=== PATIENT | male | born 1945 | race African-American/Black ===

== ENCOUNTER 2017-05-08 14:35 | Inpatient (IN) | payer MEDICARE, OTHER ==
[2017-05-08] MEDS ORDERED: IPRATROPIUM/ALBUTEROL 0.5-2.5 MG/3 ML AMPUL NEB ONE ×2 (16:17→20:30)
--- NOTE | 2017-05-08 16:19 | ER Document Report ---
ED Medical Screen (RME) - General Chief Complaint: Fever Stated Complaint: FEVER Time Seen by Provider: 05/08/17 16:10 Mode of Arrival: Ambulatory Information source: Patient Notes: 71-year-old male history of kidney transplant heart transplant presents with complaints of fever cough productive yellow since yesterday I have greeted and performed a rapid initial assessment of this patient. A comprehensive ED assessment and evaluation of the patient, analysis of test results and completion of the medical decision making process will be conducted by additional ED providers. PHYSICAL EXAMINATION: GENERAL: Well-appearing, well-nourished and in no acute distress. HEAD: Atraumatic, normocephalic. EYES: Pupils equal round extraocular movements intact, conjunctiva are normal. ENT: Nares patent NECK: Normal range of motion LUNGS: Inspiratory expiratory wheezing all throughout Musculoskeletal: Normal range of motion NEUROLOGICAL: Normal speech, normal gait. PSYCH: Normal mood, normal affect. SKIN: Dialysis access left upper extremity TRAVEL OUTSIDE OF THE [place] IN LAST 30 DAYS: No - Related Data Allergies/Adverse Reactions: No Known Allergies Allergy (Verified 05/08/17 14:37) Past Medical History - Social History Frequency of alcohol use: None Drug Abuse: None - Past Medical History Cardiac Medical History: Reports: Hx Hypertension Denies: Hx Coronary Artery Disease, Hx Heart Attack Pulmonary Medical History: Denies: Hx Asthma, Hx Bronchitis, Hx COPD, Hx Pneumonia Neurological Medical History: Denies: Hx Cerebrovascular Accident, Hx Seizures Renal/ Medical History: Denies: Hx Peritoneal Dialysis Musculoskeltal Medical History: Reports Hx Arthritis - Immunizations Hx Diphtheria, Pertussis, Tetanus Vaccination: Yes Physical Exam - Vital signs Vitals: Temp Pulse Resp BP Pulse Ox 99.9 F 64 16 169/43 H 97 05/08/17 15:01 05/08/17 15:01 05/08/17 15:01 05/08/17 15:01 05/08/17 15:01 Course - Vital Signs Vital signs: Temp Pulse Resp BP Pulse Ox 99.9 F 64 16 169/43 H 97 05/08/17 15:01 05/08/17 15:01 05/08/17 15:01 05/08/17 15:01 05/08/17 15:01
--- NOTE | 2017-05-08 16:44 | RADIOLOGY REPORT (SQ) ---
EXAM DESCRIPTION: CHEST PA/LAT COMPLETED DATE/TIME: 05/08/2017 4:30 pm REASON FOR STUDY: fever COMPARISON: None. EXAM PARAMETERS: NUMBER OF VIEWS: two views TECHNIQUE: Digital Frontal and Lateral radiographic views of the chest acquired. RADIATION DOSE: NA LIMITATIONS: none FINDINGS: LUNGS AND PLEURA: No opacities, masses or pneumothorax. No pleural effusion. MEDIASTINUM AND HILAR STRUCTURES: No masses or contour abnormalities. HEART AND VASCULAR STRUCTURES: Cardiac silhouette remains enlarged and is unchanged in configuration. BONES: No acute findings. HARDWARE: Patient is status post median sternotomy OTHER: No other significant finding. IMPRESSION: No significant interval changes compared to the previous study. Cardiomegaly. No acute changes. Other findings as noted above TECHNICAL DOCUMENTATION: JOB ID: [id number] [employer]- All Rights Reserved
[2017-05-08 17:49] LABS: ABSOLUTE EOSINOPHILS # (AUTO) 0.1 10^3/uL (0.0-0.6); ABSOLUTE LYMPHOCYTES (AUTO) 0.7 10^3/uL (0.5-4.7); ABSOLUTE NEUT (AUTO) 4.6 10^3/uL (1.7-8.2); BASOPHILS % (AUTO) 0.4 % (0-2); HEMATOCRIT 36.3 % (37.9-51.0); HEMOGLOBIN 11.9 g/dL (13.5-17.0); LYMPHOCYTES % (AUTO) 10.2 % (13-45); MEAN CORPUSCULAR HEMOGLOBIN 27.4 pg (27.0-33.4); MEAN CORPUSCULAR HGB CONC 32.8 g/dL (32.0-36.0); MEAN CORPUSCULAR VOLUME 83 fl (80-97); MONOCYTES % (AUTO) 15.4 % (3-13); PLATELET COUNT 187 10^3/uL (150-450); RED BLOOD COUNT 4.35 10^6/uL (4.35-5.55); TOTAL CELLS COUNTED % (AUTO) 100 %; WHITE BLOOD COUNT 6.4 10^3/uL (4.0-10.5)
[2017-05-08 17:55] LABS: APPEARANCE,URINE CLEAR; BILIRUBIN,URINE NEGATIVE (NEGATIVE); COLOR,URINE YELLOW; GLUCOSE, URINE NEGATIVE (NEGATIVE); KETONES,URINE NEGATIVE (NEGATIVE); LEUKOCYTE ESTERASE,URINE NEGATIVE (NEGATIVE); NITRITE,URINE NEGATIVE (NEGATIVE); PROTEIN,URINE NEGATIVE (NEGATIVE); URINE SPECIFIC GRAVITY 1.008; UROBILINOGEN,URINE NEGATIVE mg/dL (<2.0)
[2017-05-08 17:56] LABS: INTERNATIONAL RATION (INR) 1.01
[2017-05-08 18:26] LABS: VENOUS BLOOD BASE EXCESS 1.6 mmol/L; VENOUS BLOOD HCO3 25.7 mmol/L (20-32); VENOUS BLOOD PCO2 39.1 mmHg (35-63); VENOUS BLOOD PH 7.44 (7.30-7.42)
[2017-05-08 18:37] LABS: ALANINE AMINOTRANSFERASE 24 U/L (21-72); ALBUMIN 4.2 g/dL (3.5-5.0); ALKALINE PHOSPHATASE 91 U/L (38-126); ANION GAP 11 (5-19); ASPARTATE AMINO TRANSFERASE 22 U/L (17-59); BILIRUBIN,DIRECT 0.7 mg/dL (0.0-0.4); BILIRUBIN,TOTAL 0.9 mg/dL (0.2-1.3); BLOOD UREA NITROGEN 32 mg/dL (7-20); CALCIUM 10.1 mg/dL (8.4-10.2); CARBON DIOXIDE 28 mmol/L (22-30); CHLORIDE 101 mmol/L (98-107); GLUCOSE 134 mg/dL (75-110); POTASSIUM 4.3 mmol/L (3.6-5.0); SODIUM 140.2 mmol/L (137-145); TOTAL PROTEIN 7.2 g/dL (6.3-8.2)
[2017-05-08] MEDS ORDERED: CEFEPIME 2 GM/D5W RTU 2 GM/50 ML RTUPB IV ONE (20:13)
--- NOTE | 2017-05-08 20:50 | ER Document Report ---
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 He notes that he is also had an associated cough. Patient states otherwise at this time he feels well. He notes that his fever resolved spontaneously but he continues to feel generally unwell and have a dry, nonproductive cough. Nothing has been noted to worsen his symptoms. No known sick contacts. He denies recent history of similar symptoms. He has not seen his general doctor regarding today's concerns. He has received his flu vaccination this year. He denies any vomiting, diarrhea, headache, neck pain or altered mental status. No abdominal pain. TRAVEL OUTSIDE OF THE [place] IN LAST 30 DAYS: No - Related Data Allergies/Adverse Reactions: No Known Allergies Allergy (Verified 05/08/17 14:37) Past Medical History - General Information source: Patient - Social History Smoking Status: Never Smoker Frequency of alcohol use: None Drug Abuse: None Lives with: Spouse/Significant other Family History: Reviewed & Not Pertinent Patient has suicidal ideation: No Patient has homicidal ideation: No - Past Medical History Cardiac Medical History: Reports: Hx Hypertension Denies: Hx Coronary Artery Disease, Hx Heart Attack Pulmonary Medical History: Denies: Hx Asthma, Hx Bronchitis, Hx COPD, Hx Pneumonia Neurological Medical History: Denies: Hx Cerebrovascular Accident, Hx Seizures Renal/ Medical History: Denies: Hx Peritoneal Dialysis Musculoskeltal Medical History: Reports Hx Arthritis - Immunizations Hx Diphtheria, Pertussis, Tetanus Vaccination: Yes Hx Pneumococcal Vaccination: 12/29/14 Review of Systems - Review of Systems Notes: Constitutional: Positive for fever. HENT: Negative for sore throat. Eyes: Negative for visual changes. Cardiovascular: Negative for chest pain. Respiratory: Positive for cough Gastrointestinal: Negative for abdominal pain, vomiting or diarrhea. Genitourinary: Negative for dysuria. Musculoskeletal: Negative for back pain. Skin: Negative for rash. Neurological: Negative for headaches, weakness or numbness. 10 point ROS negative except as marked above and in HPI. Physical Exam - Vital signs Vitals: Temp Pulse Resp BP Pulse Ox 99.9 F 64 16 169/43 H 97 05/08/17 15:01 05/08/17 15:01 05/08/17 15:01 05/08/17 15:01 05/08/17 15:01 Interpretation: Hypertensive Notes: PHYSICAL EXAMINATION: GENERAL: Well-appearing, well-nourished and in no acute distress. HEAD: Atraumatic, normocephalic. EYES: Pupils equal round and reactive to light, extraocular movements intact, sclera anicteric, conjunctiva are normal. ENT: nares patent, oropharynx clear without exudates. Moist mucous membranes. NECK: Normal range of motion, supple without lymphadenopathy LUNGS: Breath sounds clear to auscultation bilaterally and equal. No wheezes rales or rhonchi. HEART: Regular rate and rhythm without murmurs ABDOMEN: Soft, nontender, normoactive bowel sounds. No guarding, no rebound. No masses appreciated. EXTREMITIES: Normal range of motion, no pitting or edema. No cyanosis. NEUROLOGICAL: No focal neurological deficits. Moves all extremities spontaneously and on command. PSYCH: Normal mood, normal affect. SKIN: Warm, Dry, normal turgor, no rashes or lesions noted. Course - Re-evaluation Re-evalutation: 05/08/17 20:48 Patient presents with a fever to 101.6F with an associated cough but denies any additional symptoms. He is otherwise very well in appearance, in no acute distress, but is unfortunately immune suppressed due to a both heart and kidney transplant. Clinical history and exam is not consistent with an acute bacterial meningitis, encephalitis, pneumonia, there is no evidence of a cellulitis on examination. Patient likewise denies any urinary symptoms. Chest x-ray is clear without any evidence of an acute pneumonia. Urinalysis without any evidence of a pyelonephritis. Patient does not have any focal abdominal tenderness to suggest an acute biliary pathology, acute appendicitis, acute mesenteric ischemia, bowel obstruction, bowel, or any other life- threatening acute intra-abdominal pathology as the etiology of the fever and additional symptoms today. Labs are otherwise unremarkable. Given his immune suppression and my inability to test for influenza will contact [facility] to discuss with his records management coordinator. 05/08/17 21:34 I discussed this case with the transplant fellow on-call Dr. Alfredo Ho who has recommended hospitalization on IV antibiotics and monitoring the patient to ensure that he does not have any decompensation. I have discussed this with the hospitalist who is accepted the patient for admission. - Vital Signs Vital signs: Temp Pulse Resp BP Pulse Ox 98.6 F 80 18 175/54 H 100 05/08/17 20:32 05/08/17 20:32 05/09/17 01:06 05/09/17 02:01 05/09/17 02:01 - Laboratory Result Diagrams: 05/08/17 17:15 05/08/17 17:10 Laboratory results interpreted by me: 05/08/17 05/08/17 05/08/17 17:10 17:15 17:15 Hgb 11.9 L Hct 36.3 L RDW 17.0 H Lymphocytes % 10.2 L Monocytes % 15.4 H VBG pH 7.44 H BUN 32 H Creatinine 2.02 H Est GFR ( Amer) 40 L Est GFR (Non-Af Amer) 33 L Glucose 134 H POC Glucose Direct Bilirubin 0.7 H 05/08/17 21:49 Hgb Hct RDW Lymphocytes % Monocytes % VBG pH BUN Creatinine Est GFR ( Amer) Est GFR (Non-Af Amer) Glucose POC Glucose 150 H Direct Bilirubin - Diagnostic Test Radiology reviewed: Image reviewed, Reports reviewed Radiology results interpreted by me: 05/08/17 20:50 Chest x-ray: No acute infiltrate or pneumothorax Discharge - Discharge Clinical Impression: nursing home current use of immunosuppressive drug, Cough Fever Qualifiers: Fever type: unspecified Qualified Code(s): R50.9 - Fever, unspecified Condition: Fair Disposition: ADMITTED OBSERVATION Admitting Provider: Hospitalist - [facility] Admitted: Telemetry
[2017-05-08] MEDS ORDERED: NORMAL SALINE 1000 ML 1,000 ML IV PRN (21:48)
[2017-05-08] MEDS ORDERED: ONDANSETRON HCL INJ/PF 4 MG/2 ML SDV IV PRN (21:48)
[2017-05-08] MEDS ORDERED: DOXAZOSIN MESYLATE 2 MG TABLET PO PRN (21:52)
[2017-05-08] MEDS ORDERED: GLUCAGON,HUMAN RECOMB 1 MG INJ IM PRN (21:54)
[2017-05-08] MEDS ORDERED: DEXTROSE 40% GEL 15 GM TUBE PO PRN ×2 (21:54)
[2017-05-08] MEDS ORDERED: DEXTROSE 50%-WATER 25 GM/50 ML DISP.SYRIN IV PRN ×2 (21:54)
[2017-05-08] MEDS ORDERED: SIMVASTATIN 10 MG TABLET PO SCH (22:00)
[2017-05-08] MEDS ORDERED: CLONIDINE HCL 0.1 MG TABLET PO SCH (22:00)
--- NOTE | 2017-05-08 22:33 | EKG REPORT ---
SEVERITY:- ABNORMAL ECG - SINUS RHYTHM RIGHT BUNDLE BRANCH BLOCK PROBABLE INFERIOR INFARCT, OLD PROBABLE ANTEROSEPTAL INFARCT, AGE INDETERM : Confirmed by: Mayra Delgado 08-May-2017 22:33:18
[2017-05-09] MEDS: LINEZOLID 300 ML IV SCH ×3 (00:22→23:28)
[2017-05-09] MEDS: CYCLOSPORINE, MODIFIED 25 MG CAPSULE PO SCH ×2 (00:22→12:11)
[2017-05-09] MEDS: OXYCODONE HCL IR 5 MG TABLET PO SCH ×3 (00:22→12:11)
[2017-05-09] MEDS: HYDRALAZINE HCL 50 MG TABLET PO SCH ×3 (00:22→13:34)
--- NOTE | 2017-05-09 05:01 | PDOC H&P ---
History of Present Illness Admission Date/PCP: 05/08/17 22:11 Patient complains of: Fever History of Present Illness: SILVIO COPPOLA is a 71 year old male with a history of redundant colon, external hemorrhoids, diverticulosis, heart transplant at [facility], renal transplant at [facility], hypertension presenting with a 1 day history of fever. Patient stated he started monitoring for fevers when he started having subjective fevers. Patient was found to have a temperature of 101.6 patient came in to be evaluated. Patient states he has been having sinus issues which he tends to have during this time a year. Patient denies any facial tenderness or runny nose. Patient does have a cough. Patient states that his had a viral illness earlier this week. Patient states he feels fine other than to the fever he had at home. The ED did contact [facility] which stated that his creatinine is a little bit elevated from baseline however they are okay with a 2.02 that was seen here. In the ED patient was noted to be afebrile with a cough however chest x-ray is clear. Urine and blood cultures are drawn and pending. Patient given cefepime. Hospitalist was called to observe patient for fever and workup for possible sepsis. Past Medical History Cardiac Medical History: Reports: Hypertension, Other - Heart transplant Denies: Coronary Artery Disease, Myocardial Infarction Pulmonary Medical History: Denies: Asthma, Bronchitis, Chronic Obstructive Pulmonary Disease (COPD), Pneumonia Neurological Medical History: Denies: Seizures Renal/ Medical History: Reports: Other - Renal transplant GI History Note: Diverticulosis and polyps anal condyloma narrowing in the anal stricture Musculoskeltal Medical History: Reports: Arthritis Hematology: Denies: Anemia Past Surgical History Past Surgical History: Reports: Cholecystectomy - Colonoscopy, heart transplant , kidney transplant, knee surgery, Other Social History Lives with: Spouse/Significant other Smoking Status: Never Smoker - Advance Directive Resuscitation Status: Full Code Family History Family History: Other - Alzheimer's disease in mother. Parental Family History Reviewed: No Children Family History Reviewed: No Sibling(s) Family History Reviewed.: No Medication/Allergy Home Medications: Bimatoprost [Lumigan 0.01% Oph Soln 2.5 ml/Bottle] 1 drop BTH_EYE HSP PRN Brimonidine Tartrate/Timolol [Combigan 0.2%-0.5% Eye Drops] 1 drop OP BID Cholecalciferol (Vitamin D3) [Vitamin D3] 5,000 unit PO ASDIR 05/08/17 Clonidine HCl 0.2 mg PO QPM 05/08/17 Clonidine HCl 0.4 mg PO AC 05/08/17 Clonidine HCl 0.4 mg PO QHS 05/08/17 Cyclosporine [Sandimmune 25 mg Capsule] 50 mg PO BID 05/08/17 Doxazosin Mesylate 2 mg PO HSP PRN 05/08/17 Fluticasone Propionate [Flonase Nasal Rowdy 50 Mcg/Rowdy 16 gm] 2 sprays NAREB PRN PRN 05/08/17 Hydralazine HCl 100 mg PO TID 05/08/17 Insulin Regular, Human [Humulin R (Pyxis) Insulin 100 Unit/ml 3Ml] 30 unit SUBCUT TID 05/08/17 Mycophenolate Mofetil [Cellcept 250 mg Capsule] 750 mg PO BID 05/08/17 NPH, Human Insulin Isophane [Novolin N (NPH) Insulin 100 unit/mL] 26 unit SUBCUT QPM 05/08/17 Oxycodone HCl [Roxicodone] 5 mg PO Q6H 05/08/17 Simvastatin 10 mg PO QHS 05/08/17 Torsemide [Demadex] 20 mg PO QPM 05/08/17 Torsemide [Demadex] 40 mg PO QAM 05/08/17 Vitamin E 400 unit PO DAILY 05/08/17 Allergies/Adverse Reactions: No Known Allergies Allergy (Verified 05/08/17 14:37) Review of Systems Constitutional: PRESENT: fever(s). ABSENT: chills, headache(s), weight gain, weight loss Eyes: ABSENT: visual disturbances Ears: ABSENT: hearing changes Cardiovascular: ABSENT: chest pain, dyspnea on exertion, edema, orthropnea, palpitations Respiratory: PRESENT: cough, sputum. ABSENT: hemoptysis Gastrointestinal: ABSENT: abdominal pain, constipation, diarrhea, hematemesis, hematochezia, nausea, vomiting Genitourinary: ABSENT: dysuria, hematuria Musculoskeletal: ABSENT: joint swelling Integumentary: ABSENT: rash, wounds Neurological: ABSENT: abnormal gait, abnormal speech, confusion, dizziness, focal weakness, syncope Psychiatric: ABSENT: anxiety, depression, homidical ideation, suicidal ideation Endocrine: ABSENT: cold intolerance, heat intolerance, polydipsia, polyuria Hematologic/Lymphatic: ABSENT: easy bleeding, easy bruising Physical Exam Vital Signs: Temp Pulse Resp BP Pulse Ox 99.3 F 80 10 L 159/57 H 100 05/09/17 03:43 05/08/17 20:32 05/09/17 04:01 05/09/17 04:01 05/09/17 04:01 General appearance: PRESENT: no acute distress, obese, well-nourished Head exam: PRESENT: normocephalic Eye exam: PRESENT: conjunctival injection, EOMI. ABSENT: scleral icterus Ear exam: PRESENT: normal external ear exam Mouth exam: PRESENT: moist, tongue midline Neck exam: ABSENT: carotid bruit, JVD, lymphadenopathy, thyromegaly Respiratory exam: PRESENT: clear to auscultation rut. ABSENT: rales, rhonchi, wheezes Cardiovascular exam: PRESENT: RRR, other - left arm palpable thrill. ABSENT: diastolic murmur, rubs, systolic murmur Pulses: PRESENT: normal dorsalis pedis pul Vascular exam: PRESENT: normal capillary refill GI/Abdominal exam: PRESENT: normal bowel sounds, soft. ABSENT: distended, guarding, mass, organolmegaly, rebound, tenderness Rectal exam: PRESENT: deferred Extremities exam: PRESENT: full ROM. ABSENT: calf tenderness, clubbing, pedal edema Neurological exam: PRESENT: alert, awake, oriented to person, oriented to place , oriented to time, oriented to situation, CN II-XII grossly intact. ABSENT: motor sensory deficit Psychiatric exam: PRESENT: appropriate affect, normal mood. ABSENT: homicidal ideation, suicidal ideation Skin exam: PRESENT: dry, intact, warm. ABSENT: cyanosis, rash Results Laboratory Results: 05/08/17 05/08/17 05/08/17 16:45 17:10 17:15 WBC 6.4 RBC 4.35 Hgb 11.9 L Hct 36.3 L MCV 83 MCH 27.4 MCHC 32.8 RDW 17.0 H Plt Count 187 Seg Neutrophils % 72.0 Lymphocytes % 10.2 L Monocytes % 15.4 H Eosinophils % 2.0 Basophils % 0.4 Absolute Neutrophils 4.6 Absolute Lymphocytes 0.7 Absolute Monocytes 1.0 Absolute Eosinophils 0.1 Absolute Basophils 0.0 PT INR VBG pH VBG pCO2 VBG HCO3 VBG Base Excess Sodium 140.2 Potassium 4.3 Chloride 101 Carbon Dioxide 28 Anion Gap 11 BUN 32 H Creatinine 2.02 H Est GFR ( Amer) 40 L Est GFR (Non-Af Amer) 33 L Glucose 134 H POC Glucose Lactic Acid Calcium 10.1 Total Bilirubin 0.9 Direct Bilirubin 0.7 H AST 22 ALT 24 Alkaline Phosphatase 91 Total Protein 7.2 Albumin 4.2 Urine Color YELLOW Urine Appearance CLEAR Urine pH 6.0 Ur Specific [place] 1.008 Urine Protein NEGATIVE Urine Glucose (UA) NEGATIVE Urine Ketones NEGATIVE Urine Blood NEGATIVE Urine Nitrite NEGATIVE Urine Bilirubin NEGATIVE Urine Urobilinogen NEGATIVE Ur Leukocyte Esterase NEGATIVE Urine WBC (Auto) 0 Urine RBC (Auto) 2 U Hyaline Cast (Auto) 1 Squamous Epi Cells Auto <1 Urine Mucus (Auto) RARE Urine Ascorbic Acid NEGATIVE 05/08/17 05/08/17 05/08/17 17:15 17:15 20:38 WBC RBC Hgb Hct MCV MCH MCHC RDW Plt Count Seg Neutrophils % Lymphocytes % Monocytes % Eosinophils % Basophils % Absolute Neutrophils Absolute Lymphocytes Absolute Monocytes Absolute Eosinophils Absolute Basophils PT 14.0 INR 1.01 VBG pH 7.44 H VBG pCO2 39.1 VBG HCO3 25.7 VBG Base Excess 1.6 Sodium Potassium Chloride Carbon Dioxide Anion Gap BUN Creatinine Est GFR ( Amer) Est GFR (Non-Af Amer) Glucose POC Glucose Lactic Acid 1.4 Calcium Total Bilirubin Direct Bilirubin AST ALT Alkaline Phosphatase Total Protein Albumin Urine Color Urine Appearance Urine pH Ur Specific [place] Urine Protein Urine Glucose (UA) Urine Ketones Urine Blood Urine Nitrite Urine Bilirubin Urine Urobilinogen Ur Leukocyte Esterase Urine WBC (Auto) Urine RBC (Auto) U Hyaline Cast (Auto) Squamous Epi Cells Auto Urine Mucus (Auto) Urine Ascorbic Acid 05/08/17 21:49 WBC RBC Hgb Hct MCV MCH MCHC RDW Plt Count Seg Neutrophils % Lymphocytes % Monocytes % Eosinophils % Basophils % Absolute Neutrophils Absolute Lymphocytes Absolute Monocytes Absolute Eosinophils Absolute Basophils PT INR VBG pH VBG pCO2 VBG HCO3 VBG Base Excess Sodium Potassium Chloride Carbon Dioxide Anion Gap BUN Creatinine Est GFR ( Amer) Est GFR (Non-Af Amer) Glucose POC Glucose 150 H Lactic Acid Calcium Total Bilirubin Direct Bilirubin AST ALT Alkaline Phosphatase Total Protein Albumin Urine Color Urine Appearance Urine pH Ur Specific [place] Urine Protein Urine Glucose (UA) Urine Ketones Urine Blood Urine Nitrite Urine Bilirubin Urine Urobilinogen Ur Leukocyte Esterase Urine WBC (Auto) Urine RBC (Auto) U Hyaline Cast (Auto) Squamous Epi Cells Auto Urine Mucus (Auto) Urine Ascorbic Acid Impressions: Chest X-Ray 05/08/17 16:10 IMPRESSION: No significant interval changes compared to the previous study. Cardiomegaly. No acute changes. Other findings as noted above Assessment & Plan - Diagnosis (1) Fever Qualifiers: Fever type: unspecified Qualified Code(s): R50.9 - Fever, unspecified Is this a current diagnosis for this admission?: Yes Plan: With a fever of 101.6. Being that patient is immunosuppressed due to his therapy for his kidney and heart transplant patient has to be valuated for possible sepsis. Chest X-rays negative blood and urine cultures were drawn. Patient given cefepime and Zyvox. Vancomycin is not being used as patient creatinine is up from baseline and vancomycin is nephrotoxic. So far patient has not had any more fevers. Patient continues to have fevers may consider scanning the patient chest abdomen and pelvis. (2) Transplant recipient Is this a current diagnosis for this admission?: Yes Plan: Patient is the recipient of both a heart and renal transplant both from [facility]. [facility] has been contacted in regards to the patient. Patient is currently here for an acute febrile illness. Patient is being worked up for sepsis. She is still on his immunosuppressive medications. Patient would like to take his own medications from home. (3) Anemia Qualifiers: Chronic kidney disease stage: unspecified stage Is this a current diagnosis for this admission?: Yes Plan: This may be anemia of chronic kidney disease or anemia of chronic disease. Patient is a heart and kidney transplant recipient. Hemoglobin is 11.9 which is actually better from previous labs however the last lab we have is back from 2010 which was 9.1. (4) Cough Is this a current diagnosis for this admission?: Yes Plan: Patient has a cough. Chest x-ray is negative. Patient was exposed to his who had a viral illness earlier this week. Will check patient for influenza. Patient is also being worked up for possible sepsis with blood and urine cultures. (5) group home current use of immunosuppressive drug Is this a current diagnosis for this admission?: Yes Plan: She continued on his home medications for his heart and kidney transplant. - Time Time Spent: 30 to 50 Minutes Anticipated discharge: Home Within: within 48 hours - Inpatient Certification Medical Necessity: Need for IV Antibiotics
[2017-05-09] MEDS ORDERED: ACETAMINOPHEN 325 MG TABLET PO ONE (06:36)
[2017-05-09] MEDS: LANSOPRAZOLE 30 MG TAB.RAP.DR PO SCH (06:43)
[2017-05-09 06:47] LABS: HEMATOCRIT 33.1 % (37.9-51.0); HEMOGLOBIN 10.8 g/dL (13.5-17.0); MEAN CORPUSCULAR HEMOGLOBIN 27.5 pg (27.0-33.4); MEAN CORPUSCULAR HGB CONC 32.6 g/dL (32.0-36.0); MEAN CORPUSCULAR VOLUME 84 fl (80-97); PLATELET COUNT 155 10^3/uL (150-450); RED BLOOD COUNT 3.93 10^6/uL (4.35-5.55); WHITE BLOOD COUNT 5.6 10^3/uL (4.0-10.5)
[2017-05-09 07:15] LABS: ANION GAP 12 (5-19); BLOOD UREA NITROGEN 32 mg/dL (7-20); CARBON DIOXIDE 24 mmol/L (22-30); CHLORIDE 104 mmol/L (98-107); GLUCOSE 174 mg/dL (75-110); MAGNESIUM 1.8 mg/dL (1.6-2.3); PHOSPHORUS 4.1 mg/dL (2.5-4.5); POTASSIUM 4.1 mmol/L (3.6-5.0)
[2017-05-09] MEDS ORDERED: CLONIDINE HCL 0.1 MG TABLET PO SCH ×2 (08:00→18:00)
[2017-05-09] MEDS ORDERED: MYCOPHENOLATE MOFETIL 250 MG CAPSULE PO SCH (10:00)
[2017-05-09] MEDS ORDERED: INSULIN REG, HUMAN 100 UNIT/ML 3 ML VIAL (PYX) SUBCUT SCH (10:00)
[2017-05-09] MEDS ORDERED: CHOLECALCIFEROL (D3) 1,000 UNIT TABLET PO SCH (10:00)
[2017-05-09] MEDS ORDERED: VITAMIN E (DL, ACETATE) 400 UNIT CAPSULE PO SCH (10:00)
--- NOTE | 2017-05-09 11:09 | RADIOLOGY REPORT (SQ) ---
EXAM DESCRIPTION: CT ABD/PELVIS ORAL ONLY COMPLETED DATE/TIME: 05/09/2017 10:45 am REASON FOR STUDY: fever no know source R10.84 GENERALIZED ABDOMINAL PAIN COMPARISON: None. TECHNIQUE: CT scan of the abdomen and pelvis performed without intravenous or oral contrast. Images reviewed with lung, soft tissue, and bone windows. Reconstructed coronal and sagittal MPR images revi ewed. All images stored on PACS. All CT scanners at this facility use dose modulation, iterative reconstruction, and/or weight based d osing when appropriate to reduce radiation dose to as low as reasonably achievable (ALARA). [facility]: Dose Right [facility]: CareDose [facility]: Dose Right [facility]: Teradose 4D [facility]: [employer] RADIATION DOSE: CT Rad equipment meets quality standard of care and radiation dose reduction techniq ues were employed. CTDIvol: 17.1 mGy. DLP: 1241 mGy-cm.mGy. LIMITATIONS: None. FINDINGS: LOWER CHEST: See results under chest CT scan NON-CONTRASTED LIVER, SPLEEN, ADRENALS: Evaluation limited by lack of IV contrast. No identified sign ificant masses. PANCREAS: No masses. No peripancreatic inflammatory changes. GALLBLADDER: Status post cholecystectomy RIGHT KIDNEY AND URETER: Atrophic right kidney is identified. Renal cortical calcifications are raisa ntified. No hydronephrosis or hydroureter. LEFT KIDNEY AND URETER: Atrophic left kidney is identified. Renal cortical calcifications are ident ified. No hydronephrosis or hydroureter. AORTA AND RETROPERITONEUM: No aneurysm. No retroperitoneal masses or adenopathy. BOWEL AND PERITONEAL CAVITY: No obvious masses or inflammatory changes. No free fluid. APPENDIX: Not identified PELVIS, BLADDER, AND ABDOMINAL WALL:Renal transplant kidney is identified in the right pelvis. There is enlargement of the prostate gland with a prostatic impression on the bladder base. BONES: Couple small sclerotic densities are identified most consistent with bone islands although the possibility of sclerotic metastatic disease cannot be excluded. Intramedullary calcification is raisa ntified in the proximal left femur which could be related to a bone infarct, osteoblastic metastatic lesion, or enchondroma or other chondroid neoplasm. OTHER: A a relative low density lobulated mass is identified in the upper abdomen in the midline ante rior to the liver with CT numbers suggesting a fat component. The mass measures 8.5 x 4.6 cm in diam eters and contains an eccentric calcification. The differential possibilities would include a lipoma , liposarcoma, or other sarcomatous mass lesion. Clinical correlation is recommended. IMPRESSION: Relative low density lobulated mass in the upper abdomen in the midline as noted above w ith the differential possibilities as noted above. Other findings as noted above COMMENT: Quality ID # [id number]: Final reports with documentation of one or more dose reduction techniques (e.g., Automated exposure control, adjustment of the mA and/or kV according to patient size, use of iterative reconstruction technique) TECHNICAL DOCUMENTATION: JOB ID: [id number] [employer] All Rights Reserved
[2017-05-09] MEDS: CEFEPIME 1 GM/D5W RTU 1 GM/50 ML RTUPB IV SCH ×2 (12:09→23:25)
[2017-05-09] MEDS: DOCUSATE SODIUM 100 MG CAPSULE PO SCH ×2 (12:11→18:48)
--- NOTE | 2017-05-09 12:35 | RADIOLOGY REPORT (SQ) ---
EXAM DESCRIPTION: CT CHEST WITHOUT COMPLETED DATE/TIME: 05/09/2017 10:45 am REASON FOR STUDY: fever/left sided crackles R10.84 GENERALIZED ABDOMINAL PAIN COMPARISON: CT abdomen pelvis 05/09/2017 Two-view chest 05/08/2017, 01/16/2011 TECHNIQUE: CT scan performed of the chest without intravenous contrast. Images reviewed with lung, soft tissue and bone windows. Reconstructed coronal and sagittal MPR images reviewed. All images st ored on PACS. All CT scanners at this facility use dose modulation, iterative reconstruction, and/or weight based d osing when appropriate to reduce radiation dose to as low as reasonably achievable (ALARA). [facility]: Dose Right [facility]: CareDose [facility]: Dose Right [facility]: Teradose 4D [facility]: [employer]Bear App RADIATION DOSE: 17 mGy. LIMITATIONS: No technical limitations. FINDINGS: LUNGS AND PLEURA: Minimal bandlike scarring along the posterior aspect left upper lobe. No fluffy alveolar infiltrates worrisome for edema or pneumonia. No pleural effusion. No pneumothor ax. No worrisome pulmonary nodules. Airways are patent. HILAR AND MEDIASTINAL STRUCTURES: No identified masses or abnormal nodes. No obvious aneurysm. HEART AND VASCULAR STRUCTURES: No aneurysm. No pericardial effusion. UPPER ABDOMEN: Along the inferior tip of the xiphoid process, a 4.6 x 8.5 cm well-circumscribed inter mediate to low fatty density mass is present. This could represent a lipoma or liposarcoma THYROID AND OTHER SOFT TISSUES: Mild gynecomastia. Thyroid unremarkable. BONES: There are few tiny less than 5 mm foci of sclerosis in the bilateral ribs and 7, T8, and L1 ve rtebral bodies of uncertain clinical significance HARDWARE: None in the chest. OTHER: No other significant findings. IMPRESSION: Minimal left upper lobe atelectasis. Incidental finding of a sub xiphoid mixed fatty and soft tissue density mass as above next TECHNICAL DOCUMENTATION: JOB ID: [id number] Quality ID # [id number]: Final reports with documentation of one or more dose reduction techniques (e.g., Au tomated exposure control, adjustment of the mA and/or kV according to patient size, use of iterative reconstruction technique) 2010 [employer]- All Rights Reserved
--- NOTE | 2017-05-09 15:04 | PDOC PROGRESS REPORT ---
Subjective Progress Note for:: 05/09/17 Subjective:: Patient relates that still having fever but has improved. Review of system All organ systems evaluated and negative except as in subjective All significant laboratories and diagnostics have been reviewed Reason For Visit: FEBRILE ILLNESS Physical Exam Vital Signs: Temp Pulse Resp BP Pulse Ox 98.8 F 75 14 157/46 H 97 05/09/17 11:59 05/09/17 04:44 05/09/17 06:01 05/09/17 06:01 05/09/17 06:01 General appearance: PRESENT: cooperative, obese Head exam: PRESENT: atraumatic, normocephalic Eye exam: PRESENT: conjunctiva pink, EOMI, PERRLA Ear exam: PRESENT: normal external ear exam Mouth exam: PRESENT: moist Neck exam: PRESENT: full ROM. ABSENT: JVD, lymphadenopathy, tenderness Respiratory exam: PRESENT: crackles - Soft left-sided basilar crackles Cardiovascular exam: PRESENT: RRR. ABSENT: diastolic murmur, systolic murmur Vascular exam: PRESENT: normal capillary refill GI/Abdominal exam: PRESENT: normal bowel sounds, soft. ABSENT: tenderness Extremities exam: PRESENT: full ROM Musculoskeletal exam: PRESENT: ambulatory Neurological exam: PRESENT: alert, awake, oriented to person, oriented to place , oriented to time, oriented to situation, CN II-XII grossly intact Psychiatric exam: PRESENT: appropriate affect, normal mood Skin exam: PRESENT: intact, normal color Results Laboratory Results: 05/09/17 06:26 05/09/17 06:26 05/09/17 05/09/17 06:26 06:26 WBC 5.6 RBC 3.93 L Hgb 10.8 L Hct 33.1 L MCV 84 MCH 27.5 MCHC 32.6 RDW 17.0 H Plt Count 155 Sodium 140.0 Potassium 4.1 Chloride 104 Carbon Dioxide 24 Anion Gap 12 BUN 32 H Creatinine 2.21 H Est GFR ( Amer) 36 L Est GFR (Non-Af Amer) 30 L Glucose 174 H Calcium 9.0 Phosphorus 4.1 Magnesium 1.8 Impressions: Chest X-Ray 05/08/17 16:10 IMPRESSION: No significant interval changes compared to the previous study. Cardiomegaly. No acute changes. Other findings as noted above Abdomen/Pelvis CT 05/09/17 00:00 IMPRESSION: Relative low density lobulated mass in the upper abdomen in the midline as noted above with the differential possibilities as noted above. Other findings as noted above Chest CT 05/09/17 00:00 IMPRESSION: Minimal left upper lobe atelectasis. Incidental finding of a sub xiphoid mixed fatty and soft tissue density mass as above next Assessment & Plan - Diagnosis (1) Anemia Qualifiers: Chronic kidney disease stage: unspecified stage Is this a current diagnosis for this admission?: Yes Plan: Due to chronic disease. To trend (2) CKD (chronic kidney disease) stage 3, GFR 30-59 ml/min Is this a current diagnosis for this admission?: Yes (3) Fever Qualifiers: Fever type: unspecified Qualified Code(s): R50.9 - Fever, unspecified Is this a current diagnosis for this admission?: Yes Plan: CT scan of the chest showing some atelectasis. Will order incentive spirometer. CT scan of the abdomen and pelvis does not demonstrate any significant pathology that can account for fever. Likely issue may relate to viral illness. 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 Is this a current diagnosis for this admission?: Yes Plan: Patient wishes to use his own medications (5) Abdominal mass Qualifiers: Abdominal location: unspecified location Qualified Code(s): R19.00 - Intra- abdominal and pelvic swelling, mass and lump, unspecified site Is this a current diagnosis for this admission?: Yes Plan: This is an incidental finding at likely does not have any bearing on presentation however will have to be followed up as outpatient - Time Time Spent with patient: 15-24 minutes Medications reviewed and adjusted accordingly: Yes Anticipated discharge: Home Within: within 48 hours - Inpatient Certification Based on my medical assessment, after consideration of the patient's comorbidities, presenting symptoms, or acuity I expect that the services needed warrant INPATIENT care.: Yes I certify that my determination is in accordance with my understanding of Medicare's requirements for reasonable and necessary INPATIENT services [42 CFR 412.3e].: Yes Medical Necessity: Need Close Monitoring Due to Risk of Patient Decompensation, Need for IV Antibiotics
[2017-05-09] MEDS ORDERED: BENZONATATE 100 MG CAPSULE PO PRN (15:19)
[2017-05-09] MEDS ORDERED: GLUCAGON,HUMAN RECOMB 1 MG INJ IM PRN (15:21)
[2017-05-09] MEDS ORDERED: DEXTROSE 40% GEL 15 GM TUBE PO PRN ×2 (15:21)
[2017-05-09] MEDS ORDERED: DEXTROSE 50%-WATER 25 GM/50 ML DISP.SYRIN IV PRN ×2 (15:21)
[2017-05-09] MEDS: ACETAMINOPHEN 325 MG TABLET PO PRN (16:23)
[2017-05-09] MEDS: INSULIN REG, HUMAN 100 UNIT/ML 3 ML VIAL (PYX) SUBCUT SCH (16:23)
[2017-05-09] MEDS: GUAIFENESIN 600 MG TABLET.SA PO SCH (16:24)
[2017-05-09] MEDS ORDERED: INSULIN NPH (ISOPHANE), HUMAN 100 UNIT/ML 3 ML SUBCUT SCH (18:00)
[2017-05-09] MEDS: INSULIN NPH (ISOPHANE), HUMAN 100 UNIT/ML 3 ML SUBCUT SCH (22:30)
[2017-05-09] MEDS ORDERED: LINEZOLID 300 ML IV ONE (22:47)
[2017-05-09] MEDS ORDERED: CEFEPIME 1 GM/D5W RTU 1 GM/50 ML RTUPB IV ONE (22:47)
[2017-05-10] MEDS: LANSOPRAZOLE 30 MG TAB.RAP.DR PO SCH (05:10)
[2017-05-10 05:33] LABS: HEMATOCRIT 31.6 % (37.9-51.0); HEMOGLOBIN 10.5 g/dL (13.5-17.0); MEAN CORPUSCULAR HEMOGLOBIN 27.4 pg (27.0-33.4); MEAN CORPUSCULAR HGB CONC 33.3 g/dL (32.0-36.0); MEAN CORPUSCULAR VOLUME 82 fl (80-97); PLATELET COUNT 140 10^3/uL (150-450); RED BLOOD COUNT 3.84 10^6/uL (4.35-5.55); RED CELL DISTRIBUTION WIDTH 16.7 % (11.5-14.0); WHITE BLOOD COUNT 3.2 10^3/uL (4.0-10.5)
[2017-05-10 05:51] LABS: ANION GAP 10 (5-19); BLOOD UREA NITROGEN 28 mg/dL (7-20); CALCIUM 8.5 mg/dL (8.4-10.2); CARBON DIOXIDE 26 mmol/L (22-30); CHLORIDE 101 mmol/L (98-107); GLUCOSE 202 mg/dL (75-110); MAGNESIUM 1.7 mg/dL (1.6-2.3); POTASSIUM 3.7 mmol/L (3.6-5.0); SODIUM 136.7 mmol/L (137-145)
[2017-05-10 06:19] LABS: ABSOLUTE LYMPHOCYTES# (MANUAL) 0.7 10^3/uL (0.5-4.7); ABSOLUTE MONOCYTES # (MANUAL) 0.6 10^3/uL (0.1-1.4); ABSOLUTE NEUTROPHILS# (MANUAL) 1.7 10^3/uL (1.7-8.2); BASOPHILS % (MANUAL) 0 % (0-2); EOSINOPHILS % (MANUAL) 5 % (0-6); LYMPHOCYTES % (MANUAL) 20 % (13-45); MONOCYTES % (MANUAL) 19 % (3-13); SEGMENTED NEUTROPHILS % (MAN) 53 % (42-78); TOTAL CELLS COUNTED 100
[2017-05-10 06:21] LABS: ACANTHOCYTES SLIGHT; ANISOCYTOSIS 1+; BURR CELLS SLIGHT; OVALOCYTES 1+; PLATELET COMMENT DECREASED; POIKILOCYTOSIS 2+; TEAR DROP CELLS SLIGHT
[2017-05-10] MEDS ORDERED: OSELTAMIVIR PHOSPHATE 75 MG CAPSULE PO ONE (08:00)
[2017-05-10] MEDS: LINEZOLID 300 ML IV SCH ×2 (09:30→22:40)
[2017-05-10] MEDS: GUAIFENESIN 600 MG TABLET.SA PO SCH ×2 (09:30→22:40)
[2017-05-10] MEDS: CEFEPIME 1 GM/D5W RTU 1 GM/50 ML RTUPB IV SCH ×2 (09:32→22:40)
[2017-05-10] MEDS: OSELTAMIVIR PHOSPHATE 6 MG/1 ML SUSP 60 ML PO SCH ×2 (09:32→23:00)
[2017-05-10] MEDS: INSULIN REG, HUMAN 100 UNIT/ML 3 ML VIAL (PYX) SUBCUT SCH ×2 (09:33→16:59)
[2017-05-10] MEDS: INSULIN REG, HUMAN 100 UNIT/ML 3 ML VIAL (PYX) SUBCUT PRN ×3 (09:43→12:53)
[2017-05-10] MEDS: DOCUSATE SODIUM 100 MG CAPSULE PO SCH ×2 (09:43→17:04)
[2017-05-10] MEDS ORDERED: OSELTAMIVIR PHOSPHATE 75 MG CAPSULE PO SCH (10:00)
--- NOTE | 2017-05-10 11:40 | PDOC PROGRESS REPORT ---
Subjective Progress Note for:: 05/10/17 Subjective:: Patient complains of having problems sleeping last night. Otherwise no other complaints Review of system All organ systems evaluated and negative except as in subjective All significant laboratories and diagnostics have been reviewed Reason For Visit: FEVER Physical Exam Vital Signs: Temp Pulse Resp BP Pulse Ox 98.5 F 65 16 152/44 H 99 05/09/17 23:29 05/09/17 23:29 05/09/17 23:29 05/09/17 23:29 05/09/17 23:29 Intake & Output 05/09/17 05/10/17 05/11/17 06:59 06:59 06:59 Intake Total 800 Output Total 1400 Balance -600 Weight 106 kg General appearance: PRESENT: no acute distress, cooperative, morbidly obese Head exam: PRESENT: atraumatic, normocephalic Eye exam: PRESENT: conjunctiva pink, EOMI, PERRLA Ear exam: PRESENT: normal external ear exam, TM's normal bilaterally Mouth exam: PRESENT: moist Neck exam: PRESENT: full ROM. ABSENT: JVD, lymphadenopathy, tenderness Respiratory exam: PRESENT: clear to auscultation rut Cardiovascular exam: PRESENT: RRR. ABSENT: diastolic murmur, systolic murmur Vascular exam: PRESENT: normal capillary refill GI/Abdominal exam: PRESENT: normal bowel sounds, soft. ABSENT: tenderness Extremities exam: PRESENT: full ROM Musculoskeletal exam: PRESENT: ambulatory Neurological exam: PRESENT: alert, awake, oriented to person, oriented to place , oriented to time, oriented to situation Psychiatric exam: PRESENT: appropriate affect, normal mood Skin exam: PRESENT: intact, normal color. ABSENT: jaundice Results Laboratory Results: 05/10/17 04:47 05/10/17 04:47 05/09/17 05/10/17 05/10/17 06:26 04:47 04:47 WBC 3.2 L RBC 3.84 L Hgb 10.5 L Hct 31.6 L MCV 82 MCH 27.4 MCHC 33.3 RDW 16.7 H Plt Count 140 L Seg Neutrophils % Not Reportable Lymphocytes % Not Reportable Monocytes % Not Reportable Eosinophils % Not Reportable Basophils % Not Reportable Absolute Neutrophils Not Reportable Absolute Lymphocytes Not Reportable Absolute Monocytes Not Reportable Absolute Eosinophils Not Reportable Absolute Basophils Not Reportable Sodium 140.0 136.7 L Potassium 4.1 3.7 Chloride 104 101 Carbon Dioxide 24 26 Anion Gap 12 10 BUN 32 H 28 H Creatinine 2.21 H 1.70 H Est GFR ( Amer) 36 L 48 L Est GFR (Non-Af Amer) 30 L 40 L Glucose 174 H 202 H Calcium 9.0 8.5 Phosphorus 4.1 Magnesium 1.8 1.7 Impressions: Chest X-Ray 05/08/17 16:10 IMPRESSION: No significant interval changes compared to the previous study. Cardiomegaly. No acute changes. Other findings as noted above Abdomen/Pelvis CT 05/09/17 00:00 IMPRESSION: Relative low density lobulated mass in the upper abdomen in the midline as noted above with the differential possibilities as noted above. Other findings as noted above Chest CT 05/09/17 00:00 IMPRESSION: Minimal left upper lobe atelectasis. Incidental finding of a sub xiphoid mixed fatty and soft tissue density mass as above next Assessment & Plan - Diagnosis (1) Anemia Qualifiers: Chronic kidney disease stage: unspecified stage Is this a current diagnosis for this admission?: Yes Plan: Due to chronic disease. Stable (2) CKD (chronic kidney disease) stage 3, GFR 30-59 ml/min Is this a current diagnosis for this admission?: Yes Plan: Stable (3) Fever Qualifiers: Fever type: unspecified Qualified Code(s): R50.9 - Fever, unspecified Is this a current diagnosis for this admission?: Yes Plan: There is a drop in white blood cell pointing to a viral illness. So far blood cultures are negative x 24 hours. 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 (5) Abdominal mass Qualifiers: Abdominal location: unspecified location Qualified Code(s): R19.00 - Intra- abdominal and pelvic swelling, mass and lump, unspecified site Is this a current diagnosis for this admission?: Yes Plan: Patient informed and encouraged to follow up as outpatient - Time Time Spent with patient: Less than 15 minutes Medications reviewed and adjusted accordingly: Yes Anticipated discharge: Home Within: within 24 hours - Inpatient Certification Based on my medical assessment, after consideration of the patient's comorbidities, presenting symptoms, or acuity I expect that the services needed warrant INPATIENT care.: Yes I certify that my determination is in accordance with my understanding of Medicare's requirements for reasonable and necessary INPATIENT services [42 CFR 412.3e].: Yes Medical Necessity: Need Close Monitoring Due to Risk of Patient Decompensation
[2017-05-10] MEDS ORDERED: ZOLPIDEM TARTRATE 5 MG TABLET PO PRN (22:00)
[2017-05-10] MEDS ORDERED: OSELTAMIVIR PHOSPHATE 75 MG CAPSULE ONE (22:30)
[2017-05-10] MEDS ORDERED: OSELTAMIVIR PHOSPHATE 6 MG/1 ML SUSP 60 ML ONE (22:38)
[2017-05-10] MEDS: INSULIN NPH (ISOPHANE), HUMAN 100 UNIT/ML 3 ML SUBCUT SCH (22:40)
[2017-05-10] MEDS: ACETAMINOPHEN 325 MG TABLET PO PRN (22:40)
[2017-05-11] MEDS: LANSOPRAZOLE 30 MG TAB.RAP.DR PO SCH (05:25)
[2017-05-11] MEDS: INSULIN REG, HUMAN 100 UNIT/ML 3 ML VIAL (PYX) SUBCUT SCH (08:07)
[2017-05-11 08:11] VITALS: BP 126/56
--- NOTE | 2017-05-11 15:25 | PDOC DISCHARGE SUMMARY ---
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 Is this a current diagnosis for this admission?: Yes (6) Abdominal mass Is this a current diagnosis for this admission?: Yes (7) Diabetes Is this a current diagnosis for this admission?: Yes - Additional Information Resuscitation Status: Full Code Discharge Diet: Diabetic Discharge Activity: Activity As Tolerated Home Medications: Bimatoprost [Lumigan 0.01% Oph Soln 2.5 ml/Bottle] 1 drop OU QHS 05/08/17 Brimonidine Tartrate/Timolol [Combigan 0.2%-0.5% Eye Drops] 1 drop OU BID Cholecalciferol (Vitamin D3) [Vitamin D3] 5,000 unit PO MOWEFR@1000 05/08/17 Clonidine HCl 0.2 mg PO QPM 05/08/17 Clonidine HCl 0.4 mg PO QAM 05/08/17 Clonidine HCl 0.4 mg PO QHS 05/08/17 Cyclosporine [Sandimmune 25 mg Capsule] 50 mg PO Q12 05/08/17 Doxazosin Mesylate 2 mg PO QHS 05/08/17 Fluticasone Propionate [Flonase Nasal [place] 50 Mcg/[place]ton 16 gm] 2 sprays NASL BIDP PRN 05/08/17 Hydralazine HCl 100 mg PO TID 05/08/17 Insulin Regular, Human [Humulin R (Reg) Insulin 100 unit/mL] 30 unit SUBCUT MEALS 05/08/17 Mycophenolate Mofetil [Cellcept 250 mg Capsule] 750 mg PO Q12 05/08/17 NPH, Human Insulin Isophane [Novolin N (NPH) Insulin 100 unit/mL] 26 unit SUBCUT QHS 05/08/17 Oxycodone HCl [Roxicodone] 5 mg PO Q6HP PRN 05/08/17 Simvastatin 10 mg PO QHS 05/08/17 Torsemide [Demadex] 20 mg PO QPM 05/08/17 Torsemide [Demadex] 40 mg PO QAM 05/08/17 Vitamin E 400 unit PO DAILY 05/08/17 History of Present Illness History of Present Illness: SILVIO COPPOLA is a 71 year old male with a history of redundant colon, external hemorrhoids, diverticulosis, heart transplant at [facility], renal transplant at [facility], hypertension presented with a 1 day history of fever. Patient stated that he started monitoring for fevers when he started having subjective fevers. Patient was found to have a temperature of 101.6 and came in to be evaluated. Patient stated he had been having sinus issues which he occurred during this time a year. Patient denied any facial tenderness or runny nose. Patient complaining of having a cough. Patient stated that his had a viral illness earlier this week. Patient stated he felt fine other than to the fever he had at home. The ED did contact [facility] which stated that his creatinine is a little bit elevated from baseline however they were okay with a 2.02 that was seen here. Due to comorbidities patient was admitted under the hospitalist service Hospital Course Hospital Course: Patient was admitted under hospitalist service due to comorbidities in that patient is immunosuppressed. He was initially covered with IV antibiotic and discontinued since blood cultures were negative. Upon gentle hydration creatinine went down to baseline. At the time of discharge creatinine was 1.7. During the course of evaluation through CT of the abdomen and pelvis a mass was noted in the upper abdominal area. Patient was informed and made aware need to follow-up with his primary care provider for further investigation as he is on immunosuppressive medications. Presentation was deemed to be due to viral illness instead of a septic process and mild dehydration. Patient had remained stable and prompted to discharge Physical Exam Vital Signs: Temp Pulse Resp BP Pulse Ox 98.7 F 65 16 133/35 H 98 05/11/17 00:30 05/11/17 00:30 05/11/17 00:30 05/11/17 00:30 05/11/17 00:30 Intake & Output 05/10/17 05/11/17 05/12/17 06:59 06:59 06:59 Intake Total 800 2880 Output Total 1400 3500 Balance -600 -620 Weight 106 kg 102.3 kg General appearance: PRESENT: cooperative, morbidly obese Head exam: PRESENT: atraumatic, normocephalic Eye exam: PRESENT: conjunctiva pink, EOMI, PERRLA Ear exam: PRESENT: normal external ear exam, TM's normal bilaterally Mouth exam: PRESENT: moist Neck exam: PRESENT: full ROM. ABSENT: JVD, lymphadenopathy, tenderness Respiratory exam: PRESENT: clear to auscultation rut Cardiovascular exam: PRESENT: RRR. ABSENT: diastolic murmur, systolic murmur Vascular exam: PRESENT: normal capillary refill GI/Abdominal exam: PRESENT: normal bowel sounds, soft. ABSENT: tenderness Extremities exam: PRESENT: full ROM. ABSENT: pedal edema Musculoskeletal exam: PRESENT: ambulatory Neurological exam: PRESENT: alert, altered, oriented to person, oriented to place, oriented to time, oriented to situation, CN II-XII grossly intact Psychiatric exam: PRESENT: appropriate affect, normal mood Skin exam: PRESENT: normal color Results Laboratory Results: 05/10/17 04:47 05/10/17 04:47 Impressions: Chest X-Ray 05/08/17 16:10 IMPRESSION: No significant interval changes compared to the previous study. Cardiomegaly. No acute changes. Other findings as noted above Abdomen/Pelvis CT 05/09/17 00:00 IMPRESSION: Relative low density lobulated mass in the upper abdomen in the midline as noted above with the differential possibilities as noted above. Other findings as noted above Chest CT 05/09/17 00:00 IMPRESSION: Minimal left upper lobe atelectasis. Incidental finding of a sub xiphoid mixed fatty and soft tissue density mass as above next Plan Discharge Plan: Discharge home Time Spent: Less than 30 Minutes
== END 2017-05-11 10:42 | disposition home or self-care (01) | DRG 866 ==
LOC: ER 14:35 → OBSVTOIN 22:11 → EH 22:11 → 5 05-09 21:14
PROVIDERS: ADMIT Pediatrics; ATTEND Pediatrics
DX: B34.9 Viral infection, unspecified (principal); Z94.1 Heart transplant status; Z94.0 Kidney transplant status; E86.0 Dehydration; M19.90 Unspecified osteoarthritis, unspecified site; D63.1 Anemia in chronic kidney disease; I12.9 Hypertensive chronic kidney disease with stage 1 through stage 4 chronic kidney disease, or unspecified chronic kidney disease; E11.22 Type 2 diabetes mellitus with diabetic chronic kidney disease; N18.3 Chronic kidney disease, stage 3 (moderate); E66.01 Morbid (severe) obesity due to excess calories; Z79.899 Other long term (current) drug therapy; Z92.25 Personal history of immunosuppression therapy; Z68.36 Body mass index [BMI] 36.0-36.9, adult; Z79.4 Long term (current) use of insulin
CPT/HCPCS: 36415; 71046; 71250; 74176; 80048; 80053; 81001; 82803; 82962; 83605; 83735; 84100; 85025; 85027; 85610; 87040; 87086; 93005; 93010; 94640; 94660; 96365; 99285; G0378; J0692; J1815; J2020; J3490; J7030; J7620

== ENCOUNTER → 2019-07-28 | Outpatient (CLI) | payer MEDICARE, OTHER ==
--- NOTE | 2019-07-28 15:15 | RADIOLOGY REPORT (SQ) ---
EXAM DESCRIPTION: ARTERIAL LOWER EXTREM BILAT IMAGES COMPLETED DATE/TIME: 07/28/2019 2:10 pm REASON FOR STUDY: PVD I73.9 PERIPHERAL VASCULAR DISEASE, UNSPECIFIED COMPARISON: None. TECHNIQUE: Dynamic and static soler scale and color images acquired of the lower extremity arteries. Additional selected spectral images recorded. LIMITATIONS: None. FINDINGS: RIGHT LEG: INFLOW ARTERIES: Not imaged. FEMORAL ARTERIES:Multiphasic waveforms. Mildly elevated velocities 1.5 m/sec common femoral artery an d 1.7 m/sec proximal femoral artery. POPLITEAL ARTERY:Multiphasic waveforms. No significant stenosis. PATENT TIBIOPERONEAL TRUNK AND 3 VESSEL RUNOFF: Yes. OTHER: No other significant finding. LEFT LEG: INFLOW ARTERIES: Not imaged. FEMORAL ARTERIES:Multiphasic waveforms. Mildly elevated velocities 2.2 m/sec common femoral artery an d 1.9 m/sec in the femoral artery. POPLITEAL ARTERY:Multiphasic waveforms. No significant stenosis. PATENT TIBIOPERONEAL TRUNK AND 3 VESSEL RUNOFF: Yes. OTHER: No other significant finding. IMPRESSION: Mildly elevated velocities in the femoral arteries bilaterally. No focal high-grade eric nosis. TECHNICAL DOCUMENTATION: JOB ID: [id number] 2010 [employer]- All Rights Reserved Reading location - IP/workstation name: [email or web address]
== END ==
LOC: SP 09:51
PROVIDERS: ATTEND Student in an Organized Health Care Education/Training Program
DX: I73.9 Peripheral vascular disease, unspecified (principal)
CPT/HCPCS: 93925

== ENCOUNTER 2019-09-06 15:57 | Emergency (ER) | payer MEDICARE, OTHER ==
--- NOTE | 2019-09-06 16:19 | ER Document Report ---
ED Medical Screen (RME) - General Chief Complaint: Weakness Stated Complaint: WEAKNESS Time Seen by Provider: 09/06/19 16:11 Primary Care Provider: EMBER BILL DO [Primary Care Provider] - Follow up as needed Mode of Arrival: Wheelchair Information source: Patient Notes: 74-year-old male presented to ED for shortness of breath or weakness, hiccups x3. He has a history of throat cancer, heart transplant, kidney transplant. He is very pale very weak. He states he feels very tired and lightheaded. I have greeted and performed a rapid initial assessment of this patient. A comprehensive ED assessment and evaluation of the patient, analysis of test results and completion of medical decision making process will be conducted by an additional ED providers. TRAVEL OUTSIDE OF THE [place] IN LAST 30 DAYS: No - Related Data Allergies/Adverse Reactions: No Known Allergies Allergy (Verified 05/08/17 14:37) Past Medical History - Past Medical History Cardiac Medical History: Reports: Hx Hypertension Denies: Hx Coronary Artery Disease, Hx Heart Attack Pulmonary Medical History: Denies: Hx Asthma, Hx Bronchitis, Hx COPD, Hx Pneumonia Neurological Medical History: Denies: Hx Cerebrovascular Accident, Hx Seizures Renal/ Medical History: Denies: Hx Peritoneal Dialysis Musculoskeltal Medical History: Reports Hx Arthritis Psychiatric Medical History: Denies: Hx Depression Past Surgical History: Reports: Hx Cholecystectomy - Colonoscopy, heart transplant, kidney transplant, knee surgery, Other - Immunizations Hx Diphtheria, Pertussis, Tetanus Vaccination: Yes Physical Exam - Vital signs Vitals: Pulse Resp BP 69 18 167/40 H 09/06/19 16:11 09/06/19 16:11 09/06/19 16:11 Course - Vital Signs Vital signs: Temp Pulse Resp BP Pulse Ox 69 18 167/40 H 09/06/19 16:11 09/06/19 16:11 09/06/19 16:11 Doctor's Discharge - Discharge Referrals: EMBER BILL DO [Primary Care Provider] - Follow up as needed
--- NOTE | 2019-09-06 16:43 | RADIOLOGY REPORT (SQ) ---
EXAM DESCRIPTION: CHEST 2 VIEWS IMAGES COMPLETED DATE/TIME: 09/06/2019 4:29 pm REASON FOR STUDY: Short of breath weakness history heart transplant COMPARISON: PA and lateral views of the chest from 05/08/2017. EXAM PARAMETERS: NUMBER OF VIEWS: Two views. TECHNIQUE: PA and lateral views of the chest were obtained. RADIATION DOSE: NA LIMITATIONS: None. FINDINGS: LUNGS AND PLEURA: No consolidation, pleural effusion or pneumothorax. MEDIASTINUM AND HILAR STRUCTURES: No mediastinal or hilar contour abnormality. HEART AND VASCULAR STRUCTURES: The cardiac silhouette is enlarged. BONES: No acute findings. HARDWARE: Status post median sternotomy. The tip of the right upper extremity PICC projects within t he SVC. OTHER: No other finding. IMPRESSION: Cardiomegaly without a superimposed acute cardiopulmonary process. TECHNICAL DOCUMENTATION: JOB ID: [id number] 2010 [employer]- All Rights Reserved Reading location - IP/workstation name: [email or web address]
--- NOTE | 2019-09-06 17:38 | ER Document Report ---
ED General - General Chief Complaint: Shortness Of Breath Stated Complaint: WEAKNESS Time Seen by Provider: 09/06/19 16:11 Primary Care Provider: EMBER BILL DO [Primary Care Provider] - Follow up as needed Mode of Arrival: Wheelchair Notes: HPI: Patient is a 74-year-old male with past medical history as recorded he presents today stating that he has felt "very weak" all over his body for the last 3 to 4 days. Patient has a history of a heart transplant 1995 as well as a kidney transplant 2010 all the [facility]. 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 Patient is an extraordinarily poor historian. Patient does deny any and all fever, chest pain, or leg swelling. Patient states he is completely tube fed. He states mild shortness of breath without coughing when ambulating. Patient does state that his blood sugars have been greater than 400 at home. ROS: See HPI All other review of systems reviewed and otherwise negative Reviewed vital signs and nursing note as charted by RN. PHYSICAL EXAM: CONSTITUTIONAL: Alert and oriented. He is a very poor historian. Well- appearing; well-nourished HEAD: Normocephalic; atraumatic EYES: PERRL; Conjunctivae clear, sclerae non-icteric ENT: Normal nose; no rhinorrhea; moist mucous membranes; no obvious visible pos terior pharyngeal lesions NECK: Supple without meningismus; non-tender; no palpable anterior posterior no obvious cervical lymphadenopathy, no masses CARD: Regular rate and rhythm; no murmurs; symmetric distal pulses RESP: Normal chest excursion without splinting or tachypnea; breath sounds clear and equal bilaterally; no wheezes, no rhonchi, no rales ABD/GI: Normal bowel sounds; non-distended; soft, G-tube in place with no surrounding erythema or drainage at the insertion site; non-tender; no palpable organomegaly or masses BACK: The back appears normal and is non-tender to palpation EXT: Normal ROM in all joints; non-tender to palpation; no edema SKIN: No acute lesions noted NEURO: CN 2-12 intact; 5/5 bilateral upper and lower extremity strength with sensation intact to light touch PSYCH: The patient's mood and manner are appropriate. Grooming and personal hygiene are appropriate. TRAVEL OUTSIDE OF THE [place] IN LAST 30 DAYS: No - Related Data Allergies/Adverse Reactions: No Known Allergies Allergy (Verified 05/08/17 14:37) Home Medications: Lantus, Labetelol, Torsemide, Keflex, Hydralazine and Zofran Past Medical History - General Information source: Patient - Social History Smoking Status: Unknown if Ever Smoked Family History: Other Patient has homicidal ideation: No - Past Medical History Cardiac Medical History: Reports: Hx Hypertension Denies: Hx Coronary Artery Disease, Hx Heart Attack Pulmonary Medical History: Denies: Hx Asthma, Hx Bronchitis, Hx COPD, Hx Pneumonia Neurological Medical History: Denies: Hx Cerebrovascular Accident, Hx Seizures Renal/ Medical History: Denies: Hx Peritoneal Dialysis Musculoskeletal Medical History: Reports Hx Arthritis Psychiatric Medical History: Denies: Hx Depression Past Surgical History: Reports: Hx Cholecystectomy - Colonoscopy, heart transplant, kidney transplant, knee surgery, Other - Immunizations Hx Diphtheria, Pertussis, Tetanus Vaccination: Yes Hx Pneumococcal Vaccination: 12/29/14 Physical Exam - Vital signs Vitals: Pulse Resp BP 69 18 167/40 H 09/06/19 16:11 09/06/19 16:11 09/06/19 16:11 Course - Re-evaluation Re-evalutation: Given the history and physical examination we did order a cardiac panel, x-ray of the chest, EKG, every hour Accu-Cheks and a venous blood gas. I will attempt to talk to the patient's regarding his history per the patient's instructions. 09/06/19 18:56 Labs as recorded. No change in exam. Patient appears to have acute dehydration with a BUN/creatinine ratio as recorded with a very elevated chloride and sodium level. Glucose as recorded. Patient's last creatinine here in 2018 was 1.7. I provided a liter of fluid. 09/06/19 19:09 I was able to speak with the patient's at phone #[phone]. Her name is Lawanda Cuello. 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 He had a feeding tube placed 1 months ago. He started chemotherapy August 16. He is received daily radiation. She states that he has been diffusely weak for the last few days. She denies any fevers, vomiting, and he has had some intermittent diarrhea. He gets chemotherapy weekly. I was able to call the transfer center who stated that the patient's BUN was 131 with a creatinine of 2.57 on September 01 3 days ago. 2 weeks ago his creatinine was 1.58. Given the constellation of symptoms as well as the patient's extensive complicated past medical history currently on chemotherapy with a heart and kidney transplant, with acute renal failure, I will call [facility] for transfer. 09/06/19 19:21 EKG was a heart rate of 70, normal sinus rhythm, right bundle branch block, no obvious ST elevation or depression. Inverted T waves in leads II, 3, aVF, V3 through V6. No appreciable change from previous EKG. 09/06/19 19:30 I have spoken to the hospitalist who has accepted the patient in transfer. Patient has no focal neurological deficits I believe 1 of the etiology of the patient's diffuse weakness. We have provided a liter of fluid and the hospitalist recommends 100 mL/h of normal saline which I have started. - Vital Signs Vital signs: Temp Pulse Resp BP Pulse Ox 97.3 F 69 20 155/27 H 100 09/06/19 16:15 09/06/19 16:11 09/06/19 17:45 09/06/19 18:01 09/06/19 18:01 - Laboratory Result Diagrams: 09/06/19 17:48 09/06/19 17:48 Laboratory results interpreted by me: 09/06/19 09/06/19 09/06/19 17:45 17:48 17:48 WBC 2.1 L RBC 3.90 L Hgb 11.3 L Hct 34.8 L RDW 18.6 H Plt Count 144 L Abs Neuts (Manual) 1.6 L Abs Lymphs (Manual) 0.3 L VBG pCO2 27.3 L VBG HCO3 16.5 L Sodium 146.4 H Chloride 117 H Carbon Dioxide 21 L BUN 161 H Creatinine 2.89 H Est GFR ( Amer) 26 L Est GFR (MDRD) Non-Af 22 L Glucose 149 H POC Glucose Total Protein 5.9 L Albumin 3.3 L 09/06/19 17:58 WBC RBC Hgb Hct RDW Plt Count Abs Neuts (Manual) Abs Lymphs (Manual) VBG pCO2 VBG HCO3 Sodium Chloride Carbon Dioxide BUN Creatinine Est GFR ( Amer) Est GFR (MDRD) Non-Af Glucose POC Glucose 143 H Total Protein Albumin Critical Care Note - Critical Care Note Total time excluding time spent on procedures (mins): 35 Discharge - Discharge Clinical Impression: Weakness Acute renal failure Qualifiers: Acute renal failure type: unspecified Qualified Code(s): N17.9 - Acute kidney failure, unspecified Condition: Fair Disposition: [facility] Referrals: EMBER BILL DO [Primary Care Provider] - Follow up as needed
[2019-09-06 18:03] LABS: HEMATOCRIT 34.8 % (37.9-51.0); HEMOGLOBIN 11.3 g/dL (13.5-17.0); MEAN CORPUSCULAR HEMOGLOBIN 28.9 pg (27.0-33.4); MEAN CORPUSCULAR HGB CONC 32.3 g/dL (32.0-36.0); MEAN CORPUSCULAR VOLUME 89 fl (80-97); PLATELET COUNT 144 10^3/uL (150-450); RED CELL DISTRIBUTION WIDTH 18.6 % (11.5-14.0); WHITE BLOOD COUNT 2.1 10^3/uL (4.0-10.5)
[2019-09-06 18:12] LABS: VENOUS BLOOD BASE EXCESS -6.3 mmol/L; VENOUS BLOOD HCO3 16.5 mmol/L (20-32); VENOUS BLOOD PCO2 27.3 mmHg (35-63); VENOUS BLOOD PH 7.4 (7.30-7.42)
[2019-09-06 18:16] LABS: ALBUMIN 3.3 g/dL (3.5-5.0); ALKALINE PHOSPHATASE 68 U/L (38-126); ANION GAP 8 (5-19); ASPARTATE AMINO TRANSFERASE 25 U/L (17-59); BILIRUBIN,DIRECT 0.2 mg/dL (0.0-0.4); CALCIUM 8.7 mg/dL (8.4-10.2); CARBON DIOXIDE 21 mmol/L (22-30); CHLORIDE 117 mmol/L (98-107); GLUCOSE 149 mg/dL (75-110); POTASSIUM 4.5 mmol/L (3.6-5.0); TOTAL PROTEIN 5.9 g/dL (6.3-8.2)
[2019-09-06 18:23] LABS: BLOOD UREA NITROGEN 161 mg/dL (7-20)
[2019-09-06 18:37] LABS: ABSOLUTE LYMPHOCYTES# (MANUAL) 0.3 10^3/uL (0.5-4.7); ABSOLUTE MONOCYTES # (MANUAL) 0.1 10^3/uL (0.1-1.4); BAND NEUTROPHILS % (MANUAL) 3 % (3-5); BASOPHILS % (MANUAL) 0 % (0-2); EOSINOPHILS % (MANUAL) 1 % (0-6); LYMPHOCYTES % (MANUAL) 14 % (13-45); MONOCYTES % (MANUAL) 7 % (3-13); SEGMENTED NEUTROPHILS % (MAN) 75 % (42-78); TOTAL CELLS COUNTED 100
[2019-09-06 18:39] LABS: ANISOCYTOSIS 1+; OVALOCYTES SLIGHT; PLATELET COMMENT ADEQUATE; POIKILOCYTOSIS SLIGHT
[2019-09-06] MEDS ORDERED: NORMAL SALINE 1000 ML 1,000 ML IV ONE ×2 (18:56→19:31)
[2019-09-06] MEDS ORDERED: NORMAL SALINE 1000 ML 1,000 ML IV PRN (19:28)
[2019-09-06 21:06] VITALS: BP 130/30
--- NOTE | 2019-09-07 09:30 | EKG REPORT ---
SEVERITY:- ABNORMAL ECG - SINUS RHYTHM RIGHT BUNDLE BRANCH BLOCK PROBABLE ANTEROSEPTAL INFARCT, AGE INDETERM : Confirmed by: Renee Meehan MD 07-Sep-2019 09:29:46
== END 2019-09-06 21:29 | disposition short-term general hospital (02) ==
LOC: ER 15:57
DX: N17.9 Acute kidney failure, unspecified (principal); R53.1 Weakness; R06.02 Shortness of breath; I45.10 Unspecified right bundle-branch block; Z94.1 Heart transplant status; Z94.0 Kidney transplant status; C02.9 Malignant neoplasm of tongue, unspecified; I10 Essential (primary) hypertension; Z79.899 Other long term (current) drug therapy; Z79.4 Long term (current) use of insulin; Z93.1 Gastrostomy status
CPT/HCPCS: 93005; 99291; 96360; 36415; 82962; 85025; 80053; 84484; 82803; 71046; 93010; J7030